=== PATIENT | female | born 2000 | race African-American/Black ===

== ENCOUNTER 2020-05-18 05:44 | Emergency (ER) | payer MEDICAID ==
[2020-05-18 05:57] VITALS: BP 112/72
--- NOTE | 2020-05-18 06:13 | ED Physician Documentation ---
PD HPI FEMALE - Stated complaint Stated Complaint: FEMALE - Chief complaint Chief Complaint: Abd Pain - History obtained from History obtained from: Patient - Additional information Additional information: Patient comes emergency department complaining of bad menstrual cramps. She states she started her period yesterday afternoon and a few hours later began to notice cramping. She states that the cramping escalated for the next several hours and that she tried taking ibuprofen at home, but this did not help. States she was up all night tossing and turning because she was uncomfortable, s o her boyfriend finally made her come in. Patient states her last menstrual period was about 3 weeks ago and seemed pretty normal. She is sexually active at this time and states it is not impossible that she could be . Patient states she vomited twice last night because of the pain. No fevers or chills. No back pain. Her cramps are all down in her low abdomen/pelvis. She states she has not been having any vaginal discharge prior to her period starting. No other complaints at this time. Review of Systems Ten Systems: 10 systems reviewed and negative Constitutional: reports: Reviewed and negative Eyes: reports: Reviewed and negative Ears: reports: Reviewed and negative Nose: reports: Reviewed and negative Throat: reports: Reviewed and negative Cardiac: reports: Reviewed and negative Respiratory: reports: Reviewed and negative GI: reports: Abdominal Pain, Nausea, Vomiting : reports: Vaginal bleeding Skin: reports: Reviewed and negative Musculoskeletal: reports: Reviewed and negative Neurologic: reports: Reviewed and negative Psychiatric: reports: Reviewed and negative Endocrine: reports: Reviewed and negative Immunocompromised: reports: Reviewed and negative PD PAST MEDICAL HISTORY - Present Medications Home Medications: Ambulatory Orders Medication Instructions Recorded Confirmed Sulfamethox/Trimeth 800/160 1 each PO BID #14 tablet 05/18/20 [Bactrim Ds 800/160] - Allergies Allergies/Adverse Reactions: Allergies Allergy/AdvReac Type Severity Reaction Status Date / Time No Known Drug Allergies Allergy Verified 05/18/20 05:57 PD ED PE NORMAL - Vitals Vital signs reviewed: Yes - General General: Alert and oriented X 3, No acute distress - HEENT HEENT: Atraumatic, PERRL, EOMI, Moist mucous membranes - Neck Neck: Supple, no meningeal sign - Cardiac Cardiac: RRR, No murmur, Strong equal pulses - Respiratory Respiratory: No respiratory distress, Clear bilaterally - Abdomen Abdomen: Soft, Non distended, Other (Moderate suprapubic tenderness, no rebound or guarding.) - Derm Derm: Normal color, Warm and dry, No rash - Extremities Extremities: No deformity, No edema, No calf tenderness / cord - Neuro Neuro: Alert and oriented X 3, supervisor public health nursing 2-12 intact, No motor deficit, No sensory deficit, Normal speech - Psych Psych: Normal mood, Normal affect Results - Vitals Vitals: Vital Signs - 24 hr 05/18/20 05:53 Temperature 36.4 C L Heart Rate 62 Respiratory 18 Rate Blood Pressure 112/72 O2 Saturation 99 Oxygen O2 Source Room air - Labs Labs: Laboratory Tests 05/18/20 06:15 Urine Color YELLOW Urine Clarity SL. CLOUDY Urine pH 7.5 Ur Specific [place] 1.020 Urine Protein 30 H Urine Glucose (UA) NEGATIVE Urine Ketones NEGATIVE Urine Occult Blood LARGE H Urine Nitrite NEGATIVE Urine Bilirubin NEGATIVE Urine Urobilinogen 0.2 (NORMAL) Ur Leukocyte Esterase SMALL H Urine RBC 6-10 H Urine WBC >25 H Ur Squamous Epith Cells RARE Squamous Urine Crystals 0-2 Calcium Oxalate Urine Bacteria Moderate H Ur Microscopic Review INDICATED Urine Culture Comments INDICATED Urine HCG, Qual NEGATIVE PD MEDICAL DECISION MAKING - ED course Complexity details: reviewed results, re-evaluated patient, considered differential, d/w patient ED course: The patient was worked up with urine test and urinalysis. She was given a dose of Ultram for her pain. Departure - Departure Disposition: 01 Home, Self Care Clinical Impression: UTI (urinary tract infection) Qualifiers: Urinary tract infection type: acute cystitis Hematuria presence: with hematuria Qualified Code(s): N30.01 - Acute cystitis with hematuria Condition: Stable Instructions: ED UTI Cystitis Female Prescriptions: Sulfamethox/Trimeth 800/160 [Bactrim Ds 800/160] 1 each PO BID #14 tablet Comments: Your test is negative. Your urinalysis shows signs of infection, which is most likely why you are having more discomfort in your lower abdomen. Please take the antibiotics as directed for this. You may also continue to use ibuprofen for your menstrual cramps. Please drink plenty of fluids. If you develop worsening pain or high fevers, please return to the emergency department.
[2020-05-18 06:22] LABS: BILIRUBIN,URINE NEGATIVE (NEGATIVE); GLUCOSE, URINE (UA) NEGATIVE (NEGATIVE); KETONES,URINE (UA) NEGATIVE (NEGATIVE); LEUKOCYTE ESTERASE, URINE SMALL (NEGATIVE); NITRITE,URINE NEGATIVE (NEGATIVE); OCCULT BLOOD,URINE LARGE (NEGATIVE); PH,URINE 7.5 PH (5.0-7.5); PROTEIN,URINE 30 mg/dL (NEGATIVE); UROBILINOGEN,URINE 0.2 (NORMAL) E.U./dL (NORMAL)
[2020-05-18 06:23] LABS: CLARITY,URINE SL. CLOUDY (CLEAR); HCG UR QUAL NEGATIVE
[2020-05-18 06:29] LABS: SQUAMOUS EPITHELIAL CELL,UR RARE Squamous (<= Few)
[2020-05-18 06:30] LABS: BACTERIA,URINE Moderate /HPF (None Seen); CRYSTALS,URINE 0-2 Calcium Oxalate /LPF
[2020-05-18] MEDS: traMADol 50 MG TABLET PO STA (06:34)
[2020-05-18] MEDS: SULFAMETH/TRIMETH DS 800/160 MG TABLET PO STA (06:57)
== END 2020-05-18 07:46 | disposition home or self-care (01) ==
LOC: ED 05:44
DX: N30.01 Acute cystitis with hematuria (principal); N94.6 Dysmenorrhea, unspecified
CPT/HCPCS: 81001; 81025; 87077; 87086; 99283; 99284; A9270; 81003

== ENCOUNTER 2021-03-10 15:32 | Emergency (ER) | payer MEDICAID ==
[2021-03-10 16:04] LABS: BASOPHILS % (AUTO) 0.5 %; EOSINOPHILS # (AUTO) 0.1 10^3/uL (0.0-0.7); EOSINOPHILS % (AUTO) 1.3 %; HCT - HEMATOCRIT 39.5 % (37.0-47.0); HGB - HEMOGLOBIN 13.4 g/dL (12.0-16.0); LYMPHOCYTES # (AUTO) 2.2 10^3/uL (1.5-3.5); LYMPHOCYTES % (AUTO) 36.9 %; MEAN CORPUSCULAR HEMOGLOBIN 30.2 pg (27.0-31.0); MEAN CORPUSCULAR HGB CONC 33.9 g/dL (32.0-36.0); MEAN PLATELET VOLUME 10.2 fL (7.9-10.8); MONOCYTES # (AUTO) 0.3 10^3/uL (0.0-1.0); MONOCYTES % (AUTO) 5.5 %; NEUTROPHILS # (AUTO) 3.3 10^3/uL (1.5-6.6); NEUTROPHILS % (AUTO) 55.6 %; PLT - PLATELET COUNT 244 10^3/uL (130-450); RED BLOOD COUNT 4.44 10^6/uL (4.20-5.40); RED CELL DISTRIBUTION WIDTH 12.2 % (12.0-15.0)
[2021-03-10 16:15] LABS: ALBUMIN 4.2 g/dL (3.2-5.5); ALBUMIN/GLOBULIN RATIO 1.4 (1.0-2.2); BILIRUBIN,TOTAL 0.7 mg/dL (0.2-1.0); CALCIUM 9.2 mg/dL (8.5-10.3); CREATININE 0.8 mg/dL (0.4-1.0); POTASSIUM 3.8 mmol/L (3.5-5.0); TOTAL PROTEIN 7.3 g/dL (6.7-8.2)
[2021-03-10 16:30] LABS: BILIRUBIN,URINE NEGATIVE (NEGATIVE); GLUCOSE, URINE (UA) NEGATIVE (NEGATIVE); KETONES,URINE (UA) TRACE mg/dL (NEGATIVE); LEUKOCYTE ESTERASE, URINE NEGATIVE (NEGATIVE); NITRITE,URINE NEGATIVE (NEGATIVE); OCCULT BLOOD,URINE SMALL (NEGATIVE); PROTEIN,URINE 30 mg/dL (NEGATIVE); UROBILINOGEN,URINE 1 (NORMAL) E.U./dL (NORMAL)
[2021-03-10 16:32] LABS: CLARITY,URINE CLEAR (CLEAR); HCG UR QUAL NEGATIVE
[2021-03-10 16:47] LABS: BACTERIA,URINE Few /HPF (None Seen); MUCUS,URINE Moderate Strands; RBC,URINE 0-5 /HPF (0-5); SQUAMOUS EPITHELIAL CELL,UR MOD Squamous (<= Few); WBC,URINE 0-3 /HPF (0-5)
[2021-03-10] MEDS ORDERED: SUCRALFATE 1 GM/10 ML UDC PO STA (18:46)
[2021-03-10] MEDS ORDERED: FAMOTIDINE 20 MG TABLET PO STA (18:46)
[2021-03-10] MEDS ORDERED: LIDOCAINE VISCOUS 2% 15 ML UDC MM STA (18:47)
--- NOTE | 2021-03-10 18:52 | ED Physician Documentation ---
PD HPI ABD PAIN - Stated complaint Stated Complaint: STOMACH PX - Chief complaint Chief Complaint: Abd Pain - History obtained from History obtained from: Patient - History of Present Illness Timing - onset: How many weeks ago (3) Timing - duration: Weeks (3) Timing - details: Gradual onset Pain level max: 5 Pain level now: 5 Quality: Aching, Pain Location: Epigastric Radiation: No: Chest, , Lower back, Left flank, Left shoulder, Right flank, Right shoulder, Upper back Improved by: Other (nothing) Worsened by: Eating Associated symptoms: Nausea. 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 : None HEENT: None Psych: None Musculoskeletal: None Derm: None - Past Surgical History Past Surgical History: No - Present Medications Home Medications: Ambulatory Orders Medication Instructions Recorded Confirmed Sulfamethox/Trimeth 800/160 1 each PO BID #14 tablet 05/18/20 [Bactrim Ds 800/160] Esomeprazole Magnesium [Nexium] 40 mg PO DAILY #30 cap 03/10/21 Famotidine [Pepcid] 20 mg PO BID #60 tablet 03/10/21 Sucralfate [Carafate] 1 gm PO ACHS #60 tablet 03/10/21 - Allergies Allergies/Adverse Reactions: Allergies Allergy/AdvReac Type Severity Reaction Status Date / Time No Known Drug Allergies Allergy Verified 03/10/21 15:44 - Living Situation Living Arrangement: reports: At home - Social History Does the pt smoke?: Yes Smoking Status: Current some day smoker Does the pt drink ETOH?: Yes Does the pt have substance abuse?: No Substance Use and Type: Marijuana - Immunizations Immunizations are current?: Yes - POLST Patient has POLST: No PD ED PE NORMAL - Vitals Vital signs reviewed: Yes - General General: Alert and oriented X 3, No acute distress - HEENT HEENT: PERRL, Moist mucous membranes - Neck Neck: Supple, no meningeal sign - Cardiac Cardiac: RRR, Strong equal pulses - Respiratory Respiratory: No respiratory distress, Clear bilaterally - Abdomen Abdomen: Soft, Non distended, Other (Tenderness to palpation epigastric. No peritoneal signs. Negative Schaefer sign) - Back Back: No CVA TTP, No spinal TTP - Derm Derm: Warm and dry - Extremities Extremities: No edema - Neuro Neuro: Alert and oriented X 3 - Psych Psych: Normal mood, Normal affect Results - Vitals Vitals: Oxygen O2 Source Room air - Labs Labs: Laboratory Tests 03/10/21 03/10/21 03/10/21 15:57 15:57 16:14 WBC 6.0 RBC 4.44 Hgb 13.4 Hct 39.5 MCV 89.0 MCH 30.2 MCHC 33.9 RDW 12.2 Plt Count 244 MPV 10.2 Neut # (Auto) 3.3 Lymph # (Auto) 2.2 Wells # (Auto) 0.3 Eos # (Auto) 0.1 Baso # (Auto) 0.0 Absolute Nucleated RBC 0.00 Nucleated RBC % 0.0 Sodium 138 Potassium 3.8 Chloride 102 Carbon Dioxide 29 Anion Gap 7.0 BUN 10 Creatinine 0.8 Estimated GFR (MDRD) 111 Glucose 94 Calcium 9.2 Total Bilirubin 0.7 AST 15 ALT 11 Alkaline Phosphatase 58 Total Protein 7.3 Albumin 4.2 Globulin 3.1 Albumin/Globulin Ratio 1.4 Lipase 32 Urine Color YELLOW Urine Clarity CLEAR Urine pH 7.0 Ur Specific [place] 1.025 Urine Protein 30 H Urine Glucose (UA) NEGATIVE Urine Ketones TRACE Urine Occult Blood SMALL H Urine Nitrite NEGATIVE Urine Bilirubin NEGATIVE Urine Urobilinogen 1 (NORMAL) Ur Leukocyte Esterase NEGATIVE Urine RBC 0-5 Urine WBC 0-3 Ur Squamous Epith Cells MOD Squamous H Urine Bacteria Few Urine Mucus Moderate Strands Ur Microscopic Review INDICATED Urine Culture Comments NOT INDICATED Urine HCG, Qual NEGATIVE PD MEDICAL DECISION MAKING - ED course Complexity details: reviewed results, re-evaluated patient, considered differential, d/w patient ED course: No significant lab abnormalities. Symptoms greatly improved with GI cocktail. We will treat her for gastritis versus peptic ulcer disease. Recommend that she have an endoscopy scheduled with her doctor. Patient is well-appearing, nontoxic. Afebrile. Patient counseled regarding dietary changes. Patient counseled regarding signs and symptoms for which I believe and urgent re- evaluation would be necessary. Patient with good understanding of and agreement to plan and is comfortable going home at this time This document was made in part using voice recognition software. While efforts are made to proofread this document, sound alike and grammatical errors may occur. Departure - Departure Disposition: 01 Home, Self Care Clinical Impression: Gastritis Qualifiers: Gastritis type: unspecified gastritis Chronicity: acute Gastritis bleeding: without bleeding Qualified Code(s): K29.00 - Acute gastritis without bleeding Condition: Good Instructions: ED PUD Vs Gastritis Follow-Up: Albert Ribera MD [Provider Admit Priv/Credential] - Amos Hernandez MD [Provider Admit Priv/Credential] - your,doctor [Other] Prescriptions: Sucralfate [Carafate] 1 gm PO ACHS #60 tablet Esomeprazole Magnesium [Nexium] 40 mg PO DAILY #30 cap Famotidine [Pepcid] 20 mg PO BID #60 tablet Comments: Your prescriptions were sent to [facility]. Please follow-up with your doctor for further care. I did place 2 surgeons names on your discharge paperwork views perform the endoscopies that we discussed, where they put a camera down to look at your stomach. Eat a very bland diet. Avoid fried food, spicy food, caffeine, energy drinks, smoking, anti-inflammatories such as Motrin and Aleve. Return if you worsen. Discharge Date/Time: 03/10/21 19:43
[2021-03-10 19:30] VITALS: BP 110/64
== END 2021-03-10 19:43 | disposition home or self-care (01) ==
LOC: ED 15:32
DX: K29.00 Acute gastritis without bleeding (principal); F17.200 Nicotine dependence, unspecified, uncomplicated
CPT/HCPCS: 36415; 80053; 81001; 81025; 83690; 85025; 99283; A9270; 81003; 87086; 87797

== ENCOUNTER 2021-04-07 00:58 | Emergency (ER) | payer MEDICAID ==
[2021-04-07 01:13] VITALS: BP 115/60
[2021-04-07 01:22] LABS: BILIRUBIN,URINE NEGATIVE (NEGATIVE); GLUCOSE, URINE (UA) NEGATIVE (NEGATIVE); KETONES,URINE (UA) NEGATIVE (NEGATIVE); LEUKOCYTE ESTERASE, URINE NEGATIVE (NEGATIVE); NITRITE,URINE NEGATIVE (NEGATIVE); OCCULT BLOOD,URINE NEGATIVE (NEGATIVE); PROTEIN,URINE NEGATIVE (NEGATIVE); UROBILINOGEN,URINE 0.2 (NORMAL) E.U./dL (NORMAL)
[2021-04-07 01:27] LABS: CLARITY,URINE CLEAR (CLEAR)
[2021-04-07 01:28] LABS: BACTERIA,URINE Rare /HPF (None Seen); HCG UR QUAL NEGATIVE; MUCUS,URINE Few Strands; RBC,URINE None Seen /HPF (0-5); SQUAMOUS EPITHELIAL CELL,UR FEW Squamous (<= Few); WBC,URINE 0-3 /HPF (0-5)
--- NOTE | 2021-04-07 01:51 | ED Physician Documentation ---
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 pain peaked at onset at a 10/10 and is now a 4/10, having tapered down. constant, now cramping quality, radiating to the back. denies nausea, urinary sx, abnromal discharge or lesions. Review of Systems Ten Systems: 10 systems reviewed and negative Constitutional: denies: Fever, Chills GI: reports: Abdominal Pain. 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 : None HEENT: None Psych: None Musculoskeletal: None Derm: None - Past Surgical History Past Surgical History: No - Present Medications Home Medications: Ambulatory Orders Medication Instructions Recorded Confirmed Sulfamethox/Trimeth 800/160 1 each PO BID #14 tablet 05/18/20 [Bactrim Ds 800/160] Esomeprazole Magnesium [Nexium] 40 mg PO DAILY #30 cap 03/10/21 Famotidine [Pepcid] 20 mg PO BID #60 tablet 03/10/21 Sucralfate [Carafate] 1 gm PO ACHS #60 tablet 03/10/21 - Allergies Allergies/Adverse Reactions: Allergies Allergy/AdvReac Type Severity Reaction Status Date / Time No Known Drug Allergies Allergy Verified 04/07/21 01:09 - Social History Does the pt smoke?: Yes Smoking Status: Current every day smoker Does the pt drink ETOH?: Yes Does the pt have substance abuse?: No - Immunizations Immunizations are current?: Yes - POLST Patient has POLST: No PD ED PE NORMAL - Vitals Vital signs reviewed: Yes - General General: Alert and oriented X 3, No acute distress, Well developed/nourished - HEENT HEENT: Atraumatic, PERRL, EOMI - Neck Neck: Supple, no meningeal sign - Cardiac Cardiac: RRR - Respiratory Respiratory: No respiratory distress, Clear bilaterally - Abdomen Abdomen: Non tender, Non distended, Other (discomfort to suprapubic palpation) - Female Female : Pt declined - Back Back: No CVA TTP - Derm Derm: Normal color, Warm and dry - Extremities Extremities: No deformity - Neuro Neuro: Alert and oriented X 3 - Psych Psych: Normal mood, Normal affect Results - Vitals Vitals: Vital Signs - 24 hr 04/07/21 01:09 Temperature 36.4 C L Heart Rate 65 Respiratory 15 Rate Blood Pressure 115/60 O2 Saturation 100 Oxygen O2 Source Room air - Labs Labs: Laboratory Tests 04/07/21 04/07/21 01:14 01:14 Urine Color YELLOW Urine Clarity CLEAR Urine pH 6.0 Ur Specific [place] 1.025 Urine Protein NEGATIVE Urine Glucose (UA) NEGATIVE Urine Ketones NEGATIVE Urine Occult Blood NEGATIVE Urine Nitrite NEGATIVE Urine Bilirubin NEGATIVE Urine Urobilinogen 0.2 (NORMAL) Ur Leukocyte Esterase NEGATIVE Urine RBC None Seen Urine WBC 0-3 Ur Squamous Epith Cells FEW Squamous Urine Bacteria Rare Urine Mucus Few Strands Urine Culture Comments NOT INDICATED Urine HCG, Qual NEGATIVE PD MEDICAL DECISION MAKING - ED course ED course: 20 yF p/w possible ruptured cyst, given pain improvement. declining pain meds. I did discuss option of pelvic ultrasound for evaluation of ovarian blood flow but shared decision was made that since her pain is improving significantly we can just monitor. strict return precautions discussed and patient is aware if she has recurrence of symptoms she should return immediately. quality assurance technician referral provided. Departure - Departure Disposition: 01 Home, Self Care Clinical Impression: Abdominal pain Condition: Good Instructions: Abdominal Pain Follow-Up: Shira De La Torre MD [Provider Admit Priv/Credential] - Comments: You are seen in the emergency department for abdominal pain that may be due to a ruptured ovarian cyst. Your urine test for and infection was negative, meaning you are not and don't have a uti. Please return immediately if you have your pain return since it could be a sign of twisting of the ovary which is an energency. Please also return for any new or worsening sy mtpoms or other concerns. Discharge Date/Time: 04/07/21 01:56
== END 2021-04-07 01:56 | disposition home or self-care (01) ==
LOC: ED 00:58
DX: R10.9 Unspecified abdominal pain (principal); Z32.02 Encounter for pregnancy test, result negative; F17.200 Nicotine dependence, unspecified, uncomplicated
CPT/HCPCS: 81001; 81025; 87086; 99283; 99284

== ENCOUNTER 2022-02-23 08:00 | Outpatient (CLI) | payer MEDICAID ==
[2022-02-23 10:59] LABS: BILIRUBIN,URINE NEGATIVE (NEGATIVE); GLUCOSE, URINE (UA) NEGATIVE (NEGATIVE); KETONES,URINE (UA) NEGATIVE (NEGATIVE); LEUKOCYTE ESTERASE, URINE NEGATIVE (NEGATIVE); NITRITE,URINE NEGATIVE (NEGATIVE); OCCULT BLOOD,URINE NEGATIVE (NEGATIVE); PROTEIN,URINE NEGATIVE (NEGATIVE); UROBILINOGEN,URINE 0.2 (NORMAL) E.U./dL (NORMAL)
[2022-02-23 11:00] LABS: CLARITY,URINE CLEAR (CLEAR)
[2022-02-23 11:19] LABS: BACTERIA,URINE Few /HPF (None Seen); RBC,URINE 0-5 /HPF (0-5); SQUAMOUS EPITHELIAL CELL,UR MOD Squamous (<= Few); WBC,URINE 0-3 /HPF (0-5)
== END 2022-02-23 23:59 | disposition home or self-care (01) ==
LOC: LAB.WC 08:00
PROVIDERS: ATTEND Obstetrics & Gynecology
DX: Z32.01 Encounter for pregnancy test, result positive (principal)
CPT/HCPCS: 81001; 87086

== ENCOUNTER 2022-03-02 20:50 | Outpatient (CLI) | payer MEDICAID ==
--- NOTE | 2022-03-02 22:51 | Ultrasound Report ---
PROCEDURE: OB First Trimester w/TV INDICATIONS: POSITIVE TEST OUTSIDE/PRIOR DATING DATA: Last menstrual period (LMP): Unknown. First dating scan (date and location): 03/02/2022. Estimated date of delivery (JENNYFER) from first dating scan: 10/19/2022. TECHNIQUE: Real-time scanning was performed of the fetus and maternal pelvic organs, with image documentation. Endovaginal scanning was also performed to better visualize the fetus and maternal ovaries. COMPARISON: 02/13/2022 FINDINGS: Embryo: There is an intrauterine with a gestational sac, yolk sac, and pole identifi ed. The crown-rump length measures up to 0.9 cm corresponding to gestational age of 7 weeks 0 days an d estimated delivery date of 10/19/2022. There is a small heterogeneous associated subchorionic hemato ma. There is heart motion with a rate of 135 bpm. Measurement variability in dating: +/- 4 weeks by LMP, +/- 7 days by mean sac diameter (use before 6 weeks gestation if crown-rump length not able to be measured), +/- 5 days by crown-rump length (6-12 weeks gestation). Maternal organs: The ovaries appear within normal size limits. A thick-walled cyst with peripheral va scularity is demonstrated in the right ovary measuring up to 2.2 cm consistent with a corpus luteal c yst. IMPRESSION: 1. Single living intrauterine with calculated gestational age of 7 weeks 0 days correspondi ng to an estimated delivery date of 10/19/2022. 2. Small heterogeneous associated subchorionic hematoma. 3. Probable corpus luteal cyst in the right ovary. Reviewed by: Ethan Banda MD on 03/02/2022 10:50 PM PDT Approved by: Ethan Banad MD on 03/02/2022 10:50 PM PDT Station ID: [id number]
== END 2022-03-02 20:51 | disposition home or self-care (01) ==
LOC: DI 20:50
PROVIDERS: ATTEND Nurse Practitioner
DX: O20.8 Other hemorrhage in early pregnancy (principal); Z3A.01 Less than 8 weeks gestation of pregnancy

== ENCOUNTER 2022-03-29 15:42 | Outpatient (CLI) | payer MEDICAID ==
[2022-03-29 16:08] LABS: BASOPHILS % (AUTO) 0.3 %; EOSINOPHILS % (AUTO) 0.4 %; HCT - HEMATOCRIT 35.7 % (37.0-47.0); HGB - HEMOGLOBIN 12.4 g/dL (12.0-16.0); LYMPHOCYTES # (AUTO) 1.8 10^3/uL (1.5-3.5); LYMPHOCYTES % (AUTO) 19.1 %; MEAN CORPUSCULAR HEMOGLOBIN 29.8 pg (27.0-31.0); MEAN CORPUSCULAR HGB CONC 34.7 g/dL (32.0-36.0); MEAN CORPUSCULAR VOLUME 85.8 fL (81.0-99.0); MONOCYTES # (AUTO) 0.5 10^3/uL (0.0-1.0); MONOCYTES % (AUTO) 5.1 %; NEUTROPHILS # (AUTO) 7.2 10^3/uL (1.5-6.6); NEUTROPHILS % (AUTO) 74.9 %; PLT - PLATELET COUNT 230 10^3/uL (130-450); RED BLOOD COUNT 4.16 10^6/uL (4.20-5.40); RED CELL DISTRIBUTION WIDTH 11.7 % (12.0-15.0); WHITE BLOOD COUNT 9.6 x10^3/uL (4.8-10.8)
[2022-03-30 04:08] LABS: HBsAG SCREEN Negative (Negative); HCV AB <0.1 s/co ratio (0.0-0.9)
[2022-03-30 06:09] LABS: RPR Non Reactive (Non Reactive)
[2022-03-30 07:10] LABS: HIV SCREEN 4TH GENERATION Non Reactive (Non Reactive)
[2022-03-30 08:10] LABS: VARICELLA-ZOSTER AB IGG 2266 index (Immune >165)
== END 2022-03-29 15:43 | disposition home or self-care (01) ==
LOC: LAB 15:42
PROVIDERS: ATTEND Obstetrics & Gynecology
DX: Z36.89 Encounter for other specified antenatal screening (principal)
CPT/HCPCS: 36415; 85025; 86592; 86762; 86787; 86803; 86850; 86900; 86901; 87340; 87389

== ENCOUNTER 2022-03-30 08:00 | Outpatient (CLI) | payer MEDICAID ==
[2022-03-30 11:42] LABS: MUDS CUTOFF CONCENTRATIONS CUTOFF CONC BELOW:
[2022-03-30 11:48] LABS: BILIRUBIN,URINE NEGATIVE (NEGATIVE); GLUCOSE, URINE (UA) NEGATIVE (NEGATIVE); KETONES,URINE (UA) NEGATIVE (NEGATIVE); LEUKOCYTE ESTERASE, URINE NEGATIVE (NEGATIVE); NITRITE,URINE NEGATIVE (NEGATIVE); OCCULT BLOOD,URINE NEGATIVE (NEGATIVE); PROTEIN,URINE NEGATIVE (NEGATIVE); UROBILINOGEN,URINE 0.2 (NORMAL) E.U./dL (NORMAL)
[2022-03-30 11:50] LABS: CLARITY,URINE CLEAR (CLEAR)
[2022-03-30 12:10] LABS: AMPHETAMINE SCREEN,URINE NEGATIVE (NEGATIVE); BARBITURATE SCREEN,UR NEGATIVE (NEGATIVE); BENZODIAZEPINES SCREEN, URINE NEGATIVE (NEGATIVE); COCAINE SCREEN URINE NEGATIVE (NEGATIVE); METHADONE SCREEN, URINE NEGATIVE (NEGATIVE); METHAMPHETAMINES SCREEN, URINE NEGATIVE (NEGATIVE); OPIATE SCREEN, URINE NEGATIVE (NEGATIVE); OXYCODONE SCREEN, URINE NEGATIVE (NEGATIVE); PROPOXYPHENE SCREEN, URINE NEGATIVE (NEGATIVE); THC CANNABINOID SCREEN, URINE NEGATIVE (NEGATIVE); TRICYCLIC ANTIDEPRESSANT,URINE NEGATIVE (NEGATIVE)
[2022-03-30 12:33] LABS: BACTERIA,URINE Few /HPF (None Seen); EPITHELIAL CELLS,UR RARE Transitional /HPF (<= Few); RBC,URINE None Seen /HPF (0-5); SQUAMOUS EPITHELIAL CELL,UR RARE Squamous (<= Few); WBC,URINE 0-3 /HPF (0-5)
[2022-03-30 23:12] LABS: CHLAMYDIA TRACHOMATIS DNA NEGATIVE (NEGATIVE); NEISSERIA GONORRHOEAE DNA NEGATIVE (NEGATIVE); TRICHOMONAS VAGINALIS DNA NEGATIVE (NEGATIVE)
== END 2022-03-30 23:59 | disposition home or self-care (01) ==
LOC: LAB.WC 08:00
PROVIDERS: ATTEND Obstetrics & Gynecology
DX: Z34.90 Encounter for supervision of normal pregnancy, unspecified, unspecified trimester (principal); Z36.89 Encounter for other specified antenatal screening; Z87.898 Personal history of other specified conditions
CPT/HCPCS: 80306; 81001; 87086; 87491; 87591; 87661

== ENCOUNTER 2022-07-06 05:03 | Outpatient (CLI) | payer MEDICAID ==
[2022-07-06 05:58] LABS: BILIRUBIN,URINE NEGATIVE (NEGATIVE); GLUCOSE, URINE (UA) NEGATIVE (NEGATIVE); KETONES,URINE (UA) NEGATIVE (NEGATIVE); LEUKOCYTE ESTERASE, URINE NEGATIVE (NEGATIVE); NITRITE,URINE NEGATIVE (NEGATIVE); OCCULT BLOOD,URINE NEGATIVE (NEGATIVE); PH,URINE 6.5 PH (5.0-7.5); PROTEIN,URINE NEGATIVE (NEGATIVE); UROBILINOGEN,URINE 0.2 (NORMAL) E.U./dL (NORMAL)
[2022-07-06 06:00] LABS: CLARITY,URINE CLEAR (CLEAR)
[2022-07-06 06:04] VITALS: BP 115/69
[2022-07-06 06:04] LABS: BACTERIA,URINE None Seen /HPF (None Seen); RBC,URINE None Seen /HPF (0-5); SQUAMOUS EPITHELIAL CELL,UR RARE Squamous (<= Few); WBC,URINE 0-3 /HPF (0-5)
--- NOTE | 2022-07-06 06:39 | PROVIDER PROGRESS NOTE ---
- HPI Chief Complaint: Labor Current : Vital Signs Temperature 99.0 F 07/06/22 05:25 Heart Rate 66 07/06/22 05:25 Respiratory Rate 18 07/06/22 05:25 Blood Pressure 115/69 07/06/22 05:25 O2 Saturation 100 07/06/22 05:25 Temperature 99.0 F 07/06/22 05:30 Heart Rate 66 07/06/22 05:30 Respiratory Rate 18 07/06/22 05:30 Blood Pressure 115/69 07/06/22 05:30 O2 Saturation 100 07/06/22 05:25 If not protocol: Oxygen Flow, liters/minute - Procedures Diagnosis/Indication for NST: labor NST Procedure: EFM performed, too early gestational age for NST. FHR 130s, no decelerations Deputy: no contractions EFM reassuring Evaluated 07/06/22 Service Date of procedure: 07/06/22 - Plan Plan: 21yo at 25w by 7w US presents with her for back pain radiating to her front this morning. Initially pain was 8/10, currently says pain has decreased and 3/10. Denies leaking fluid or bleeding. Good movement here on FBP. care with Torri Griffith food specialist, patient reports uncomplicated . Tolerating regular diet. Denies nausea, vomiting, diarrhea. Last BM yesterday. 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 Possible reflux/back pain discomforts in . - Exam benign, labor precautions reviewed, return precautions reviewed - May try management of symptoms for reflux, back pain comfort measures reviewed - Follow up with primary OB provider - status reassuring
== END 2022-07-06 06:40 | disposition home or self-care (01) ==
LOC: FBP 05:03 → WFO 05:03
PROVIDERS: ATTEND Obstetrics & Gynecology
DX: O47.02 False labor before 37 completed weeks of gestation, second trimester (principal); Z3A.25 25 weeks gestation of pregnancy; O99.891 Other specified diseases and conditions complicating pregnancy; M54.9 Dorsalgia, unspecified
CPT/HCPCS: 81001; 87086; 99214

== ENCOUNTER 2022-07-07 17:49 | Outpatient (CLI) | payer MEDICAID | END 2022-07-07 17:50 | disposition critical access hospital (66) | LOC: EMS 17:49 | DX: O99.891 Other specified diseases and conditions complicating pregnancy (principal); M54.6 Pain in thoracic spine; Z3A.24 24 weeks gestation of pregnancy | CPT/HCPCS: A0425; A0429; A0999 ==

== ENCOUNTER 2022-07-07 18:06 | Emergency (ER) | payer MEDICAID ==
--- NOTE | 2022-07-07 18:24 | ED Physician Documentation ---
History of Present Illness - Stated complaint Stated Complaint: GLF/25 WK PREG - Chief complaint Chief Complaint: Back Pain - History obtained from History obtained from: Patient - Additonal information Additional information: 21-year-old otherwise healthy at 25 weeks gestation. She developed some upper back pain today. She is in the process of moving so has been lifting a lot of boxes etc. She got in a hot shower and getting out of the shower she started to feel weak and dizzy. Her fianc was helping her walk and then went to open the door for her and she passed out. She did hit her head on a pile of clothes on the way down and the fianc did not think she hit her head hard. There was no report of abdominal trauma. She still complains of upper back pain, but no complaints related to passing out. No chest pain or trouble breathing. No vaginal bleeding or fluid loss. Review of Systems Constitutional: denies: Fever, Chills, Fatigue Cardiac: denies: Chest pain / pressure, Palpitations Respiratory: denies: Dyspnea, Cough PD PAST MEDICAL HISTORY - Past Medical History Cardiovascular: None Respiratory: None Neuro: None Endocrine/Autoimmune: None GI: None GUIDE EXCURSION: None : None HEENT: None Psych: None Musculoskeletal: None Derm: None - Past Surgical History Past Surgical History: No - Present Medications Home Medications: Ambulatory Orders Medication Instructions Recorded Confirmed HYDROcod/ACETAM 5/325 [Marianna 5/325] 1 - 2 tab PO Q6H PRN #10 tablet 07/07/22 - Allergies Allergies/Adverse Reactions: Allergies Allergy/AdvReac Type Severity Reaction Status Date / Time No Known Drug Allergies Allergy Verified 07/07/22 18:21 - Social History Does the pt smoke?: Yes Smoking Status: Current every day smoker Does the pt drink ETOH?: Yes Does the pt have substance abuse?: No - Immunizations Immunizations are current?: Yes - POLST Patient has POLST: No PD ED PE NORMAL - Vitals Vital signs reviewed: Yes - General General: Alert and oriented X 3, No acute distress - HEENT HEENT: PERRL, EOMI - Neck Neck: Supple, no meningeal sign, No bony TTP - Cardiac Cardiac: RRR, No murmur - Respiratory Respiratory: No respiratory distress, Clear bilaterally - Abdomen Abdomen: Non tender, Other (Bedside ultrasound demonstrates single live intrauterine with heart rate of 140. No free fluid.) - Back Back: No spinal TTP, Other (Reproducible tenderness of the right parathoracic musculature which reproduces her back pain.) - Derm Derm: Normal color, Warm and dry - Extremities Extremities: No edema, No calf tenderness / cord - Neuro Neuro: Alert and oriented X 3, Normal speech Results - Vitals Vitals: Vital Signs - 24 hr 07/07/22 07/07/22 07/07/22 18:09 19:06 20:27 Temperature 36.3 C L Heart Rate 88 73 80 Respiratory 16 21 16 Rate Blood Pressure 124/75 119/68 112/76 O2 Saturation 100 100 98 Oxygen O2 Source Room air - EKG (time done) 1833 Rate: Rate (enter#) (72) Rhythm: NSR [place]: Normal Intervals: Normal HI QRS: Normal Ischemia: Normal ST segments - Labs Labs: Laboratory Tests 07/07/22 07/07/22 18:27 18:27 WBC 11.4 H RBC 3.78 L Hgb 11.5 L Hct 33.6 L MCV 88.9 MCH 30.4 MCHC 34.2 RDW 12.2 Plt Count 188 MPV 10.3 Neut # (Auto) 9.0 H Lymph # (Auto) 1.7 [place] # (Auto) 0.6 Eos # (Auto) 0.1 Baso # (Auto) 0.0 Absolute Nucleated RBC 0.00 Nucleated RBC % 0.0 Sodium 133 L Potassium 3.8 Chloride 102 Carbon Dioxide 25 Anion Gap 6.0 BUN 8 Creatinine 0.6 Estimated GFR (MDRD) 153 Glucose 83 Calcium 8.9 Total Bilirubin 0.4 AST 28 ALT 18 Alkaline Phosphatase 74 Total Protein 6.5 L Albumin 3.3 Globulin 3.2 Albumin/Globulin Ratio 1.0 PD Medical Decision Making - ED course ED course: I did discuss the case with our on-call OB, Dr. Carpio by phone after initial evaluation. Since there is no abdominal trauma we will monitor her here but I do not see need for formal OB consultation and he is in agreement. She received 4 mg of morphine for the upper back pain and felt like that was much better. The back pain does seem reproducible on exam and muscular. Doubt intrathoracic emergency based on history and physical. Departure - Departure Disposition: Home, Self Care Clinical Impression: Back pain Qualifiers: Back pain location: thoracic back pain Chronicity: acute Back pain laterality: right Qualified Code(s): M54.6 - Pain in thoracic spine Syncope Qualifiers: Syncope type: vasovagal syncope Qualified Code(s): R55 - Syncope and collapse Qualifiers: Weeks of gestation: 25 weeks Qualified Code(s): Z3A.25 - 25 weeks gestation of Condition: Good Record reviewed to determine appropriate education?: Yes Instructions: ED Neck Back Pain General, ED Dizziness Syncope Fainting W Pre Prescriptions: HYDROcod/ACETAM 5/325 [Marianna 5/325] 1 - 2 tab PO Q6H PRN #10 tablet PRN Reason: Pain Comments: You were seen today for episode of passing out after having a painful stimulus and being in a hot shower. We did a bedside ultrasound and the baby is looking fine. We did a twelve-lead EKG and it was completely normal. Your CBC was normal for , white count 11.4, hemoglobin 11.5, hematocrit 33.6, platelets of 188. Comprehensive metabolic panel also notable for sodium 133 which is normal in , otherwise with normal electrolytes, kidney function, blood sugar, liver enzymes. I sent your prescription electronically to [facility] in [place]. If pain is mild you can certainly just take Tylenol. Call your doctor to arrange a follow-up appointment, make the next available appointment. In the interim, return anytime if worse or if new symptoms develop. I am prescribing a short course of narcotic pain medication for you. These are potentially dangerous and addictive medications that should be used carefully. These medications may constipate you. Take an vbdx-npi-xcoykgz stool softener (docusate) twice daily with plenty of water while taking these medications. If you go 24 hours without a bowel movement, take vull-sdq-objqkjl miralax, per package instructions. Do not drink or drive while taking these medications. If you received narcotic or sedating medications while in the emergency department, do not drive for 24 hours. Store this medication in a safe, secure place and out of reach of children. It is a violation of federal law to give or sell this medication to another person or to use in a manner other than prescribed. The ED will not refill narcotic prescriptions, including prescriptions lost or stolen. To dispose of unwanted medications: 1. [facility] at [address] in [place] has a medication drop box. They accept prescription medications (in pill form) Monday through Monday 9:00 a.m. to 5:00 p.m. 2. The [facility] accepts prescription medications (in pill form only) for disposal year round. Call for more information. 3. Contact the [facility] for the next [facility] sponsored prescription drug collection event. , [phone], or [phone]; Note that many narcotic pain relievers also contain Tylenol/acetaminophen. Please ensure that your total dose of acetaminophen from all sources does not exceed 3 g (3000 mg) per day. Forms: Activity restrictions Discharge Date/Time: 07/07/22 20:27
[2022-07-07 18:31] LABS: BASOPHILS % (AUTO) 0.3 %; EOSINOPHILS # (AUTO) 0.1 10^3/uL (0.0-0.7); EOSINOPHILS % (AUTO) 0.7 %; HCT - HEMATOCRIT 33.6 % (37.0-47.0); HGB - HEMOGLOBIN 11.5 g/dL (12.0-16.0); LYMPHOCYTES # (AUTO) 1.7 10^3/uL (1.5-3.5); LYMPHOCYTES % (AUTO) 15.2 %; MEAN CORPUSCULAR HEMOGLOBIN 30.4 pg (27.0-31.0); MEAN CORPUSCULAR HGB CONC 34.2 g/dL (32.0-36.0); MEAN CORPUSCULAR VOLUME 88.9 fL (81.0-99.0); MEAN PLATELET VOLUME 10.3 fL (7.9-10.8); MONOCYTES # (AUTO) 0.6 10^3/uL (0.0-1.0); MONOCYTES % (AUTO) 5.1 %; NEUTROPHILS % (AUTO) 78.4 %; PLT - PLATELET COUNT 188 10^3/uL (130-450); RED BLOOD COUNT 3.78 10^6/uL (4.20-5.40); RED CELL DISTRIBUTION WIDTH 12.2 % (12.0-15.0); WHITE BLOOD COUNT 11.4 x10^3/uL (4.8-10.8)
--- OUTSIDE RECORDS SUMMARY | 2022-07-07 18:32 | EXTERNAL MEDICAL SUMMARY RPT | Continuity of Care Document ---
:2000 Author Organization [place] Address [address] [place] [address] Phone Allergies No information. Encounters No information. Functional Status No information. Immunizations No information. Medications No information. Problems date description facility 2022-06-01 16:24 Encounter for supervision of normal [facility] , second 2022-06-01 17:08 Encounter for supervision of normal [facility] , second 2022-06-01 17:10 Encounter for supervision of normal [facility] , second Procedures No information. Results/Labs test date author facility value unit interpret ation Result panel 1 (unknown) (no (unknown) (unknown) (no value) (units (unk nown) date) unknown) (unknown) (no (unknown) (unknown) [id number] (units (unkno wn) date) unknown) (unknown) (no (unknown) (unknown) 1. A single (units (un known) date) living unknown) intrauterine gestation with appropriate interval growth. (unknown) (no (unknown) (unknown) 06/01/22 (units (unkno wn) date) unknown) (unknown) (no (unknown) (unknown) [address] (units (unknown) date) unknown) (unknown) (no (unknown) (unknown) 2. An echogenic (units (unknown) date) focus in the left unknown) ventricle. As an isolated finding, this is (unknown) (no (unknown) (unknown) 3. Otherwise (units (u nknown) date) normal unknown) anatomic survey. (unknown) (no (unknown) (unknown) 7 mm in 3rd (units (un known) date) trimester. unknown) (unknown) (no (unknown) (unknown) Abdominal (units (unkn own) date) circumference: 20 unknown) weeks 0 day (unknown) (no (unknown) (unknown) Accession (units (unkn own) date) Number: unknown) [id number] (unknown) (no (unknown) (unknown) Age/Sex: 21 / F (units (unknown) date) Date of Service: unknown) (unknown) (no (unknown) (unknown) Amniotic fluid (units (unknown) date) index: 17.8 cm, unknown) normal range is 5-24 cm. (unknown) (no (unknown) (unknown) [place] (units ( unknown) date) [id number] unknown) (unknown) (no (unknown) (unknown) Anatomic survey: (units (unknown) date) unknown) (unknown) (no (unknown) (unknown) Approved by: (units (u nknown) date) Alee Moore M.D. unknown) on 06/06/2022 at 12:10 (unknown) (no (unknown) (unknown) Biparietal (units (unk nown) date) diameter: 20 unknown) weeks 3 days (unknown) (no (unknown) (unknown) Bladder: Normal (units (unknown) date) in size. unknown) (unknown) (no (unknown) (unknown) COMPARISON: (units (un known) date) None. unknown) (unknown) (no (unknown) (unknown) Clinically (units (unk nown) date) estimated unknown) gestational age: 20 weeks 0 day (unknown) (no (unknown) (unknown) Composite (units (unkn own) date) gestational age unknown) from present scan: 20 weeks 0 day (unknown) (no (unknown) (unknown) Cord: 3-vessel (units (unknown) date) cord has unknown) orthotopic insertion. (unknown) (no (unknown) (unknown) : 2000 (units (unknown) date) Acct:[id number] unknown) (unknown) (no (unknown) (unknown) Diaphragm: (units (unk nown) date) Diaphragm is unknown) intact. (unknown) (no (unknown) (unknown) Dictated by: (units (u nknown) date) Alee Moore M.D. unknown) on 06/06/2022 at 12:05 (unknown) (no (unknown) (unknown) Endovaginal (units (un known) date) scanning: Not unknown) performed (unknown) (no (unknown) (unknown) Estimated date (units (unknown) date) of delivery (JENNYFER) unknown) from first dating scan: 10/19/2022. (unknown) (no (unknown) (unknown) Estimated (units (unknown) date) weight and unknown) percentile: 326 g; 45% (unknown) (no (unknown) (unknown) Extremities: All (units (unknown) date) 4 extremities unknown) identified. (unknown) (no (unknown) (unknown) FINDINGS: (units (unkn own) date) unknown) (unknown) (no (unknown) (unknown) Face: Nose and (units (unknown) date) lips, facial unknown) profile are normal. (unknown) (no (unknown) (unknown) Femur length: 20 (units (unknown) date) Weeks 0 day unknown) (unknown) (no (unknown) (unknown) (units (unkno wn) date) biometrics: unknown) (unknown) (no (unknown) (unknown) heart (units (un known) date) rate: 141 beats unknown) per minute. (unknown) (no (unknown) (unknown) First dating (units (u nknown) date) scan (date and unknown) location): 03/02/2022 at . (unknown) (no (unknown) (unknown) General: A (units (unk nown) date) single living unknown) intrauterine gestation is present. (unknown) (no (unknown) (unknown) Head (units (unkno wn) date) circumference: 19 unknown) weeks 4 days (unknown) (no (unknown) (unknown) Heart: (units (unkno wn) date) 4-chambered heart unknown) is present, with normal ventricular outflow tracts. (unknown) (no (unknown) (unknown) IMPRESSION: (units (un known) date) unknown) (unknown) (no (unknown) (unknown) INDICATIONS: (units (u nknown) date) Anatomy scan unknown) (unknown) (no (unknown) (unknown) [facility] (units (unknown) date) unknown) (unknown) (no (unknown) (unknown) Kidneys: No (units (un known) date) unknown) hydronephrosis. Normal is less than 5 mm in 2nd trimester, (unknown) (no (unknown) (unknown) LMP-based (units (unkn own) date) estimated date of unknown) delivery (JENNYFER): Not available. (unknown) (no (unknown) (unknown) Last menstrual (units (unknown) date) period (LMP): Not unknown) available. (unknown) (no (unknown) (unknown) Loc: [place] (units (unkno wn) date) unknown) (unknown) (no (unknown) (unknown) Maternal (units (unkno wn) date) cervical canal: unknown) 3.5 cm long. Normal lower limit is 2.5 cm. (unknown) (no (unknown) (unknown) Neuro: (units (unkno wn) date) Ventricles are unknown) non-dilated at less than 10 mm. Cisterna magna is (unknown) (no (unknown) (unknown) Nuchal skin (units (un known) date) fold: Normal at unknown) less than 6 mm between 14-21 weeks gestational (unknown) (no (unknown) (unknown) OUTSIDE/PRIOR (units ( unknown) date) DATING DATA: unknown) (unknown) (no (unknown) (unknown) Ordering (units (unkno wn) date) Provider: unknown) Galina Gomez L.M. (unknown) (no (unknown) (unknown) PROCEDURE: US OB (units (unknown) date) >= 14 WEEKS FETUS unknown) (unknown) (no (unknown) (unknown) Patient: (units (unkno wn) date) Ruth Mendez unknown) MR#: [id number] (unknown) (no (unknown) (unknown) Placenta: (units (unkn own) date) Placental unknown) position is posterior , without previa. (unknown) (no (unknown) (unknown) Presentation: (units ( unknown) date) Vertex. unknown) (unknown) (no (unknown) (unknown) Procedure: US OB (units (unknown) date) >= 14 weeks Fetus unknown) (unknown) (no (unknown) (unknown) Real-time (units (unkn own) date) scanning was unknown) performed of the fetus, with image documentation and (unknown) (no (unknown) (unknown) Signed (units (unkno wn) date) unknown) (unknown) (no (unknown) (unknown) Single deepest (units (unknown) date) vertical pocket unknown) is 6.0 cm. (unknown) (no (unknown) (unknown) Spine: No (units (unkn own) date) evidence for unknown) spina bifida. (unknown) (no (unknown) (unknown) Stomach: (units (unkno wn) date) Left-sided unknown) stomach is present. (unknown) (no (unknown) (unknown) TECHNIQUE: (units (unk nown) date) unknown) (unknown) (no (unknown) (unknown) The calculations (units (unknown) date) are made using unknown) the working JENNYFER of . (unknown) (no (unknown) (unknown) There is a (units (unk nown) date) unknown) (unknown) (no (unknown) (unknown) To assist (units (unkn own) date) unknown) (unknown) (no (unknown) (unknown) Ultrasound (units (unk nown) date) Report unknown) (unknown) (no (unknown) (unknown) We strive to (units (u nknown) date) produce accurate, unknown) complete, and clear reports of imaging services. (unknown) (no (unknown) (unknown) a normal (units (unkno wn) date) variant. Please unknown) correlate with other screening tests. (unknown) (no (unknown) (unknown) age. (units (unkno wn) date) unknown) (unknown) (no (unknown) (unknown) and voice (units (unkn own) date) recognition unknown) software. Therefore, it may contain abnormal punctuation, (unknown) (no (unknown) (unknown) biometric (units (unkn own) date) unknown) (unknown) (no (unknown) (unknown) echogenic focus (units (unknown) date) in left unknown) ventricle. (unknown) (no (unknown) (unknown) inaccuracies. (units ( unknown) date) unknown) (unknown) (no (unknown) (unknown) insertions (units (unk nown) date) and/or omissions. unknown) Occasional wrong-word or sound-alike substitutions (unknown) (no (unknown) (unknown) less than (units (unkn own) date) unknown) (unknown) (no (unknown) (unknown) may (units (unkno wn) date) unknown) (unknown) (no (unknown) (unknown) measurements. (units ( unknown) date) unknown) (unknown) (no (unknown) (unknown) mm. Cerebellum (units (unknown) date) is normal in size unknown) and morphology. (unknown) (no (unknown) (unknown) most likely (units (un known) date) unknown) (unknown) (no (unknown) (unknown) normal at 3-11 (units (unknown) date) unknown) (unknown) (no (unknown) (unknown) occur. Though we (units (unknown) date) review the report unknown) and make efforts to correct it, we do (unknown) (no (unknown) (unknown) recommend that (units (unknown) date) unknown) (unknown) (no (unknown) (unknown) templates (units (unkn own) date) unknown) (unknown) (no (unknown) (unknown) the report be (units ( unknown) date) read carefully in unknown) proper context to recognize any text (unknown) (no (unknown) (unknown) us in improving (units (unknown) date) patient care, unknown) this report was composed using standard report Social History No information. Vital Signs No information.
[2022-07-07 18:43] LABS: ALBUMIN 3.3 g/dL (3.2-5.5); BILIRUBIN,TOTAL 0.4 mg/dL (0.2-1.0); CALCIUM 8.9 mg/dL (8.5-10.3); CREATININE 0.6 mg/dL (0.4-1.0); POTASSIUM 3.8 mmol/L (3.5-5.0); TOTAL PROTEIN 6.5 g/dL (6.7-8.2)
[2022-07-07] MEDS ORDERED: MORPHINE 2 MG/ML CARPUJECT IVP STA (19:27)
[2022-07-07] MEDS ORDERED: HYDROcod/ACET 5/325 Prepack 4 PO STA (20:01)
[2022-07-07 20:34] VITALS: BP 112/76
== END 2022-07-07 20:27 | disposition home or self-care (01) ==
LOC: EDUNIT# → ED 18:06
DX: O99.891 Other specified diseases and conditions complicating pregnancy (principal); M54.6 Pain in thoracic spine; R55 Syncope and collapse; O99.332 Smoking (tobacco) complicating pregnancy, second trimester; F17.200 Nicotine dependence, unspecified, uncomplicated; Z3A.25 25 weeks gestation of pregnancy
CPT/HCPCS: 36415; 80053; 85025; 93005; 96374; 99284